=== PATIENT | female | born 1965 | race Asian ===

== ENCOUNTER 2017-01-17 08:22 | Outpatient (CLI) | payer BC | END 2017-01-17 19:08 | disposition home or self-care (01) | LOC: MAMMO 08:22 | DX: Z12.31 Encounter for screening mammogram for malignant neoplasm of breast (principal) | CPT/HCPCS: G0202-TC ==

== ENCOUNTER 2017-11-10 16:43 | Outpatient (CLI) | payer BC | END 2017-11-10 20:10 | disposition home or self-care (01) | LOC: US 16:43 | DX: M79.605 Pain in left leg (principal) ==

== ENCOUNTER 2023-04-15 09:52 | Outpatient (CLI) | payer BC | END 2023-04-15 21:17 | disposition home or self-care (01) | LOC: MRI 09:52 | PROVIDERS: ATTEND Nurse Practitioner Family | DX: M25.561 Pain in right knee (principal) | CPT/HCPCS: 36415; 82565; 84520 ==